=== PATIENT | female | born 1965 | race Caucasian/White ===

== ENCOUNTER → 2016-06-12 | Outpatient (CLI) | payer OTHER ==
--- NOTE | 2016-06-12 11:34 | RADRPT ---
PROCEDURE: XR right knee. CLINICAL INDICATION: Knee pain TECHNIQUE: AP weightbearing, PA weightbearing, lateral weightbearing and sunrise views are availab le for review. COMPARISON: None available FINDINGS: Bipartite patella. There is mild osteoarthrosis involving the medial tibial femoral compartment (joint space narrowing and minimal osteophytosis) and the lateral tibial femoral compartment (osteophytosis). There is otherwise normal mineralization, architecture and alignment. No fractures are identified. No osseous lesions are identified. The soft tissues are unremarkable. IMPRESSION: Bipartite patella Mild osteoarthrosis involving the medial tibial femoral compartment (joint space narrowing and minim al osteophytosis) and the lateral tibial femoral compartment (osteophytosis). RPTAT: [facility] .Ezequiel Tavares MD, Date Time Electronically viewed and signed by .Ezequiel Tavares MD, on 06/12/2016 11:33 .B/
== END | disposition home or self-care (01) ==
LOC: HKI 10:18
PROVIDERS: ATTEND Orthopaedic Surgery
DX: S83.231A Complex tear of medial meniscus, current injury, right knee, initial encounter (principal); S83.221A Peripheral tear of medial meniscus, current injury, right knee, initial encounter; X58.XXXA Exposure to other specified factors, initial encounter; F17.210 Nicotine dependence, cigarettes, uncomplicated
CPT/HCPCS: 73564; Z7500; G0463

== ENCOUNTER → 2016-08-10 | Outpatient (CLI) | payer OTHER | END | disposition home or self-care (01) | LOC: HKI 09:18 | PROVIDERS: ATTEND Orthopaedic Surgery | DX: Z01.818 Encounter for other preprocedural examination (principal); S83.231A Complex tear of medial meniscus, current injury, right knee, initial encounter; S83.261A Peripheral tear of lateral meniscus, current injury, right knee, initial encounter; M25.561 Pain in right knee; M77.11 Lateral epicondylitis, right elbow; M25.521 Pain in right elbow; X58.XXXA Exposure to other specified factors, initial encounter | CPT/HCPCS: G0463 ==

== ENCOUNTER 2016-08-20 05:20 | Day surgery (SDC) | payer OTHER ==
[2016-08-11 09:27] VITALS: BMI 28.6
[~2016-08-20] VITALS: Ht 177.8 cm; Wt 90.0 kg
[2016-08-20] VITALS (14 sets, daily range): BP systolic 99–123; BP diastolic 52–84; PULSE 62–92; RESP 5–18; Ht 177.8 cm; Wt 90.0 kg
[2016-08-20] MEDS ORDERED: PROPOFOL 20 ML ONE (06:20)
[2016-08-20] MEDS ORDERED: LIDOCAINE 2% (SDV) 5 ML INJ ONE (06:20)
[2016-08-20] MEDS ORDERED: NEOSTIGMINE 3 MG/3 ML SYRINGE ONE (06:20)
[2016-08-20] MEDS ORDERED: ROCURONIUM 50 MG INJ ONE (06:20)
[2016-08-20] MEDS ORDERED: GLYCOPYRROLATE 0.4 MG INJ ONE (06:20)
[2016-08-20] MEDS ORDERED: MIDAZOLAM 1 MG/ML 2 ML INJ ONE (06:20)
[2016-08-20] MEDS ORDERED: FENTAnyl 50 MCG/ML VIAL ONE (06:21)
[2016-08-20] MEDS ORDERED: DEXAMETHASONE 4 MG/ML 1 ML INJ ONE (06:23)
[2016-08-20] MEDS ORDERED: ONDANSETRON 4 MG INJ ONE (06:23)
[2016-08-20] MEDS ORDERED: HYDR-906 PO (06:28)
[2016-08-20] MEDS ORDERED: ATOR20TA38 PO (06:28)
[2016-08-20] MEDS ORDERED: TRAM50TA2 PO (06:28)
[2016-08-20] MEDS ORDERED: SERT25TA PO (06:28)
[2016-08-20] MEDS ORDERED: LABETALOL HCL 20MG INJ IV PRN (06:30)
[2016-08-20] MEDS ORDERED: OXYCODONE/ACETAMINOPHEN (5/325) TAB PO PRN ×2 (06:30)
[2016-08-20] MEDS ORDERED: hydrALAzine 20 MG INJ IV PRN (06:30)
[2016-08-20] MEDS ORDERED: ONDANSETRON 4 MG INJ IV PRN (06:30)
[2016-08-20] MEDS ORDERED: DIPHENHYDRAMINE 50 MG INJ IV PRN (06:30)
[2016-08-20] MEDS ORDERED: EPHEDrine SULFATE 50 MG/5 ML SYG IV PRN (06:30)
[2016-08-20] MEDS ORDERED: FENTAnyl 50 MCG/ML VIAL IV PRN ×2 (06:30)
[2016-08-20] MEDS ORDERED: MIDAZOLAM 1 MG/ML 2 ML INJ IV PRN (06:30)
[2016-08-20] MEDS ORDERED: morphine (1 MG/ML) 10ML SYRINGE IV PRN ×3 (06:30)
[2016-08-20] MEDS ORDERED: ATROPINE 1 MG/10 ML SYRINGE IV PRN (06:30)
[2016-08-20] MEDS ORDERED: HYDROmorphONE (0.2 MG/ML) 10ML SYG IV PRN ×3 (06:30)
[2016-08-20] MEDS ORDERED: MEPERIDINE 25 MG INJ IV PRN (06:30)
[2016-08-20] MEDS ORDERED: oxyCODONE (CR) 10 MG TAB [oxyCONTIN] X1 DOSE PO SCH (07:00)
[2016-08-20] MEDS ORDERED: LACTATED RINGER'S 1,000 ML IV SCH (07:00)
[2016-08-20] MEDS ORDERED: traMADOL 50 MG TAB X 1 DOSE PO SCH (07:00)
[2016-08-20] MEDS ORDERED: CELECOXIB 400 MG PO X1 DOSE PO SCH (07:00)
[2016-08-20] MEDS ORDERED: PREGABALIN 300 MG PO X1 PO SCH (07:00)
[2016-08-20] MEDS ORDERED: CEFAZOLIN 2GM/50 ML (PMX) 50 ML X1 BEFORE INCISION IVPB SCH (07:00)
[2016-08-20] MEDS ORDERED: KETOROLAC 30 MG INJ ONE ×2 (07:03→08:06)
[2016-08-20] MEDS ORDERED: ROPIVACAINE 0.5 % 30 ML VIAL ONE (07:03)
[2016-08-20] MEDS ORDERED: morphine SULFATE/PF (10 MG/10 ML) INJ ONE (07:03)
[2016-08-20] MEDS ORDERED: LIDOCAINE 1%/EPI 30 ML INJ ONE (07:03)
--- NOTE | 2016-08-20 07:12 | HPN ---
Date/Time of Note Date/Time of Note DATE: 08/20/16 TIME: 07:12 Interval H&P Admission Note Pt. seen H&P reviewed: No system changes No change from H&P on 08/12/16 by KAM Frye ERIK N. MD August 20, 2016 07:12
[2016-08-20] MEDS ORDERED: EPHEDrine SULFATE 50 MG/5 ML SYG ONE (07:28)
[2016-08-20] MEDS ORDERED: CEFAZOLIN 1 GM INJ ONE (07:55)
[2016-08-20] MEDS ORDERED: FLUMAZENIL 0.5 MG INJ ONE (08:21)
[2016-08-20] MEDS ORDERED: traMADol 50 MG TAB PO PRN (08:30)
--- NOTE | 2016-08-20 08:36 | OPR ---
Date/Time of Note Date/Time of Note DATE: 08/20/16 TIME: 08:34 Operative Report Free Text/Dictation Dictation # [id number] Procedure Date: August 20, 2016 Preoperative Diagnosis Right Knee Medial Meniscus Tear Postoperative Diagnosis Right Knee Medial and Lateral Meniscal Tears Operation Performed Right Knee A/S and partial medial and lateral menisectomies Surgeon: DOTTY WORRELL MD assistant general manager: KAYLEEN REA PA-C Anesthesia: general Anesthesiologist: GUNNER GERMAIN MD Tourniquet Time: None Estimated Blood Loss: 50 - 100 ml's Specimens None Tubes/Drains None Complications: None Pt Condition Post Procedure: stable Disposition: PACU DOTTY WORRELL MD August 20, 2016 08:36
[2016-08-20] MEDS ORDERED: SERTRALINE 50 MG TAB PO SCH (09:00)
--- NOTE | 2016-08-20 09:54 | OPR ---
DATE OF OPERATION: 08/20/2016 PREOPERATIVE DIAGNOSIS: Right knee medial and lateral meniscus tear. POSTOPERATIVE DIAGNOSIS: Right knee medial and lateral meniscus tear OPERATION PERFORMED: Right knee arthroscopy, partial medial and lateral meniscectomies. SURGEON: Dotty Travis MD HAND ALTERATIONS SEAMSTRESS: Bridger LEE ANESTHESIA: General endotracheal intubation. ANESTHESIOLOGIST: Dr. Todd. TOURNIQUET TIME: Zero minutes. ESTIMATED BLOOD LOSS: Scant. INTRAVENOUS FLUIDS: 700 mL of crystalloid. SPECIMENS: None. DRAINS: None. COMPLICATIONS: None. DISPOSITION: Patient tolerated the procedure well and was taken to the recovery room in stable condition. INDICATIONS: The patient is a 51-year-old woman who has had pain, with mechanical symptoms of catching and popping in the right knee. MRI demonstrated a medial meniscus tear. I felt she would benefit from a knee arthroscopy and partial medial meniscectomy. The risks, benefits, and alternatives of the procedure were explained in detail to the patient. I explained the risks to include, but not be limited to, bleeding, infection, pain , stiffness, neurovascular injury, possible numbness, weakness, and/or paralysis anywhere from the knee down to the toes, fracture, ligamentous injury , need for additional future surgery including possible total knee arthroplasty , wound healing problems, blood clots, pulmonary embolism, and anesthetic complications such as heart attack, stroke, GI bleed, pneumonia and/or . Ample time was allowed for the patient to ask questions, all of which were addressed and answered. The patient understood the risks involved and wished to proceed. Informed consent was signed prior to the procedure. PROCEDURE: The right knee was initialed with a marking pen in the preoperative holding area and tied down to identify the correct operative site. The patient was then brought to the operating room and transferred from the [facility] to the operating table, where the patient was anesthetized and intubated. A time-out was performed to confirm the right side was the correct operative site. The patient was given 2 grams of intravenous Ancef within 1 hour prior to the incision. A tourniquet was placed on the right proximal thigh. The superolateral aspect of the right knee was prepped with Betadine and I then injected 30 mL of 0.5% ropivacaine into the knee joint. The entire right knee and lower extremity were prepped and draped in the usual sterile fashion. Standard arthroscopic portal incisions were made, one inferolateral and one inferomedial. The arthroscope was introduced into the inferolateral portal and the arthroscopy initiated. The suprapatellar pouch was free of loose bodies and synovitis. The undersurface of the patella was inspected and had no significant degenerative changes. The medial and lateral gutters were inspected and free of loose bodies and synovitis. The medial compartment was then inspected and there was an extensive tear of the posterior horn and body of the medial meniscus. This was debrided back to a stable edge with a combination of biters, irena and Arthrocare wand. It was probed and was noted to be stable. The medial femoral condyle and medial tibial plateau looked healthy, with no degenerative changes. The inner trochlear notch was inspected and the ACL and PCL were in normal position with no evidence of tearing. The lateral compartment was inspected. There was some free edge tearing of the lateral meniscus, which was shaved back to a stable edge with a combination of the shaver and Arthrocare wand. It was probed and was stable. The lateral femoral condyle and lateral tibial plateau looked healthy, with no degenerative changes. At this point the arthroscopy was completed. The knee was irrigated through the arthroscope until the egress of fluid was free of meniscal fragments and blood. The instruments were removed. The knee was injected with a mixture of 0.5% ropivacaine, 4 mg of Duramorph and 30 mg of Toradol. The portal incisions were then closed with interrupted 3-0 Monocryl and 3-0 Prolene in a vertical mattress fashion. The skin edges were sealed with Dermabond. The wounds were covered with Adaptic, 4 x 4s and wrapped with sterile cast padding and an Ramy wrap. The patient was awakened, extubated, and taken to the recovery room in stable condition. Dictated By: DOTTY PERKINS/BENEDICT Conf#: [id number] DID#: [id number] MT[facility]ivar
[2016-08-20] MEDS ORDERED: ATORVASTATIN 20 MG TAB PO SCH (21:00)
== END 2016-08-20 11:05 | disposition home or self-care (01) ==
LOC: SDS 05:20
PROVIDERS: ATTEND Orthopaedic Surgery
DX: M23.221 Derangement of posterior horn of medial meniscus due to old tear or injury, right knee (principal); M23.200 Derangement of unspecified lateral meniscus due to old tear or injury, right knee; E78.5 Hyperlipidemia, unspecified; J45.909 Unspecified asthma, uncomplicated; Z87.891 Personal history of nicotine dependence
CPT/HCPCS: 29880; 87081; J0690; J1100; J1885; J2250; J2274; J2405; J2710; J2795; J3010; Z7512; Z7610

== ENCOUNTER → 2016-08-28 | Outpatient (CLI) | payer OTHER ==
[~2016-08-28] MED LIST: ATOR20TA38 PO; HYDR-906 PO; SERT25TA PO; TRAM50TA2 PO
--- NOTE | 2016-08-28 10:06 | HKNOTE ---
DATE OF SERVICE: 08/28/2016 INTERVAL HISTORY: The patient presents today for her first postoperative evaluation. She is 8 days status post right knee arthroscopy and partial medial and lateral meniscectomy. She is doing well overall. She is ambulating without any assistive device. She denies any significant pain. She den ies any fevers or chills. She is happy with her progress thus far. She presents today for her firs t postoperative evaluation. PHYSICAL EXAMINATION: Today she is alert and oriented x4 and in no acute distress. She is ambulati ng without any assistive device. Exam of the portal incisions demonstrated them to be clean, dry an d intact. Sutures are in place. She has trace effusion. Range of motion is 0-120 degrees. Varus and valgus forces are stable. There is no erythema or warmth noted. Homans sign is negative. Comp artments are soft. She is neurovascularly intact distally. ASSESSMENT: Eight days status post right knee arthroscopy, doing well. PLAN: The sutures were removed today and Steri-Strips were applied. She is weightbearing as tolera nannette and will begin outpatient physical therapy. She is to take pain medicine as needed. She is to continue with the Mobic as prescribed. We will see her back in 4 weeks for a repeat evaluation. Th e patient is to call the office in the meantime if she has any concerns. Dictated By: KAYLEEN LEE for DOTTY BASILIO/BENEDICT Conf#: [id number] DID#: [id number]
== END | disposition home or self-care (01) ==
LOC: HKI 09:08
PROVIDERS: ATTEND Orthopaedic Surgery
DX: Z47.89 Encounter for other orthopedic aftercare (principal); S83.281D Other tear of lateral meniscus, current injury, right knee, subsequent encounter; S83.241D Other tear of medial meniscus, current injury, right knee, subsequent encounter
CPT/HCPCS: G0463

== ENCOUNTER → 2016-09-25 | Outpatient (CLI) | payer OTHER | END | disposition home or self-care (01) | LOC: HKI 10:06 | PROVIDERS: ATTEND Orthopaedic Surgery | DX: Z47.89 Encounter for other orthopedic aftercare (principal); S83.231D Complex tear of medial meniscus, current injury, right knee, subsequent encounter; S83.261D Peripheral tear of lateral meniscus, current injury, right knee, subsequent encounter ==

== ENCOUNTER 2018-08-17 05:54 | Day surgery (SDC) | payer OTHER ==
[~2018-08-17] VITALS: Ht 177.8 cm; Wt 85.0 kg
[~2018-08-17 05:54] MED LIST changes: +HYDR-4011 PO; -HYDR-906 PO
--- NOTE | 2018-08-17 07:19 | PREAC ---
Date/Time of Note Date/Time of Note DATE: 08/17/18 TIME: 07:16 Anesthesia Eval and Record Evaluation Time Pre-Procedure Interview DATE: 08/17/18 TIME: 07:16 Age 53 Sex female NPO: 8 hrs Preoperative diagnosis GERD, screening Planned procedure EGD, colonoscopy Past Medical History Past Medical History: Includes Cardio: Dyslipidemia Pulm: Sleep Apnea GI: Other (fatty liver) Heme: Anemia Psych: Anxiety Surgery & Anesthesia Issues No known issue Meds Anticoagulation: No Beta [place] within 24 hr: No Reason Beta [place] not given: Pt. not on B-[place] Reported Medications Atorvastatin Calcium* (Atorvastatin Calcium*) 20 Mg Tablet, 20 MG PO QHS, #30 TAB 08/20/16 Hydrocodone/Acetaminophen (Oak 5-325 Tablet) 1 Each Tablet, 1 EACH PO, TAB 08/20/16 Tramadol HCl (Tramadol HCl) 50 Mg Tablet, 50 MG PO Q6 PRN for PAIN, #120 TAB 08/20/16 Sertraline Hcl* (Zoloft*) 25 Mg Tablet, 25 MG PO DAILY, #30 TAB 08/20/16 Meds reviewed: Yes Allergies Coded Allergies: pollen extracts (Verified Allergy, Unknown, allergig rhinitis, 08/20/16) Uncoded Allergies: freezer dried mix berries (Allergy, Severe, throat swollen, 08/11/16) Allergies Reviewed: Yes Labs/Studies Labs Reviewed: Reviewed by anesthesiologist test: N/A (hysterectomy) Pre-procedure Exam Airway: Adequate mouth opening, Adequate thyromental dist Mallampati: Mallampati II Teeth: Normal Lung: Normal Heart: Normal ASA Physical Status ASA physical status: 2 Emergency: None Planned Anesthetic General/MAC: Mask Planned Pain Management Parenteral pain med Pre-operative Attestations Prior to commencing anesthesia and surgery, the patient was re-evaluated, there was verification of: *The patient's identity *The results of appropriate recent lab work and preoperative vital signs *The above evaluation not changing prior to induction *Anesthetic plan, risk benefits, alternative and complications discussed with patient/family; questions answered; patient/family understands, accepts and wishes to proceed. JESSICA HOWELL MD August 17, 2018 07:19
[2018-08-17 07:21] VITALS: Ht 177.8 cm; Wt 85.0 kg
[2018-08-17] MEDS ORDERED: NASAL SPRAY (07:30)
[2018-08-17] MEDS ORDERED: PRILOSEC PO (07:30)
[2018-08-17 07:45] VITALS: BP 145/86; PULSE 86; RESP 20
[2018-08-17] MEDS ORDERED: PROPOFOL 40 ML ONE (07:48)
[2018-08-17] MEDS ORDERED: LIDOCAINE 2% (SDV) 5 ML INJ ONE (07:48)
[2018-08-17] MEDS ORDERED: ONDANSETRON 4 MG INJ IV PRN (08:00)
[2018-08-17] MEDS ORDERED: PROPOFOL 20 ML ONE (08:14)
[2018-08-17 08:30] VITALS: BP 125/61; PULSE 84; RESP 22
--- NOTE | 2018-08-17 08:31 | PAC ---
Date/Time of Note Date/Time of Note DATE: 08/17/18 TIME: 08:30 Post-Anesthesia Notes Post-Anesthesia Note Last documented vital signs BP: 125/61 HR: 82 RR: 15 T: 98 SaO2: 96% Activity: WNL Respiratory function: WNL Cardiovascular function: WNL Mental status: Baseline Pain reasonably controlled: Yes Hydration appropriate: Yes Nausea/Vomiting absent: Yes JESSICA HOWELL MD August 17, 2018 08:31
[2018-08-17 08:46] VITALS: BP 101/65; PULSE 70; RESP 18
== END 2018-08-17 14:33 | disposition home or self-care (01) ==
LOC: GIL 05:54
PROVIDERS: ATTEND Internal Medicine Gastroenterology
DX: Z12.11 Encounter for screening for malignant neoplasm of colon (principal); D12.5 Benign neoplasm of sigmoid colon; K29.50 Unspecified chronic gastritis without bleeding; K21.0 Gastro-esophageal reflux disease with esophagitis; K64.1 Second degree hemorrhoids
CPT/HCPCS: 43239; 45380; 88305; Z7610